=== PATIENT | female | born 1960 | race Caucasian/White ===

== ENCOUNTER → 2017-03-24 | Outpatient (CLI) | payer MEDICARE, OTHER ==
[~2017-03-24] MED LIST: BENADRYL IV; FLEXERIL PO; GEODAN PO; PHENERGAN PO; PROZAC PO; TOPAMAX PO; ULTRAM PO; ZITHROMAX PO
--- NOTE | ~2017-03-24 | MY11 ---
[facility] A Service of [facility] RADIOLOGY TEXT RESULTS PATIENT: JOANNE ROD LOCATION: [facility] : 60 UNIT #: [id number] AGE: [address]: Enrique Burk MD SEX: F ORDER DR: [id number] [facility] [address] [place], [place] [address] [id number] O MR#: [id number] Acc #: [id number] NAME: JOANNE ROD : 1960 SEX: F STUDY DATE/TIME: 03/24/2017 11:01 UNIT: [facility] ROOM: STUDY DESCRIPTION: MY Mammogram Screening Dig Buzz Attending Physician: Enrique Burk M.D. Ordering Physician: Enrique Burk M.D. Primary Care Physician: Enrique Burk M.D. MEDICAL IMAGING REPORT This report is preliminary unless electronic signature is present EXAM Bilateral digital screening mammogram with CAD HISTORY Routine screening. No current complaints. No family history of breast cancer. COMPARISON 01/24/2016, 01/09/2015, 06/22/2014. FINDINGS MLO and CC digital views of each breast were obtained. The study was done with digital technique and reviewed with an FDA-approved CAD device. The breasts are almost entirely fatty replaced except for an oval 2 cm nodule in the right upper outer quadrant. The right breast nodule has been present for many years and has minimally increased in size. 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 IMPRESSION No significant change. No evidence of malignancy. Patients over the age of 40 are entered into a reminder system with target due date for the next mammogram. A result letter will also be sent to the patient. BIRADS: 2 Benign finding Dictated by... Alberto Allen M.D. THIS IS AN ELECTRONICALLY VERIFIED REPORT [facility] A Service of [facility] RADIOLOGY TEXT RESULTS PATIENT: JOANNE ROD LOCATION: [facility] : 60 UNIT #: [id number] AGE: [address]: Enrique Burk MD SEX: F ORDER DR: Alberto Allen M.D. at 03/24/2017 3:55 PM EILEEN/nayeli TD: 03/24/2017 13:31 JOB #: [id number] MEDICAL IMAGING REPORT Page 1 of 1 COPY
== END | disposition home or self-care (01) ==
LOC: CWCC 03-20 14:30
DX: Z12.31 Encounter for screening mammogram for malignant neoplasm of breast (principal)
CPT/HCPCS: G0202

== ENCOUNTER → 2017-06-08 | Outpatient (CLI) | payer MEDICARE, OTHER ==
--- NOTE | ~2017-06-08 | BD1 ---
[facility] A Service of [facility] RADIOLOGY TEXT RESULTS PATIENT: JOANNE ROD LOCATION: [facility] : 60 UNIT #: [id number] AGE: [address]: Enrique Burk MD SEX: F ORDER DR: [id number] [facility] [address] [place], [place] [address] [id number] O MR#: [id number] Acc #: [id number] NAME: JOANNE ROD : 1960 SEX: F STUDY DATE/TIME: 06/08/2017 9:51 UNIT: [facility] ROOM: STUDY DESCRIPTION: BD Dexa Bone Dens 1+ Site Attending Physician: Enrique Burk M.D. Referring Physician: Enrique Burk M.D. Ordering Physician: Enrique Burk M.D. Primary Care Physician: Enrique Burk M.D. MEDICAL IMAGING REPORT This report is preliminary unless electronic signature is present EXAM DXA scan, 06/08/2017 HISTORY Status post menopause with no hormone replacement therapy. Osteopenia. Diabetes. Smoking history. FINDINGS Bone mineral density in the lumbar spine from L1-L4 is 0.998 g/cm2 which is 0.4 standard deviations below the mean when compared to the young adult reference population which is within the range of normal. This is 0.8 standard deviations above the mean when compared to the age-matched population. Bone mineral density in the left femoral neck was 0.715 g/cm2 which is 1.2 standard deviations below the mean when compared to the young adult reference population which is characteristic of osteopenia. This is 0.1 standard deviations below the mean when compared to the age-matched population. IMPRESSION Bone mineral density in the lumbar spine within the range of normal and within the left hip characteristic of osteopenia. Dictated by... Bry Bee M.D. THIS IS AN ELECTRONICALLY VERIFIED REPORT Bry Bee M.D. at 06/09/2017 7:32 AM ADAMARIS/garrett TD: 06/08/2017 14:03 [facility] A Service of [facility] RADIOLOGY TEXT RESULTS PATIENT: JOANNE ROD LOCATION: [facility] #: [id number] : 60 UNIT #: [id number] AGE: [address]: Enrique Burk MD SEX: F ORDER DR: DARREL #: [id number] MEDICAL IMAGING REPORT Page 1 of 1 COPY
== END | disposition home or self-care (01) ==
LOC: CWCC 09:38
DX: Z13.820 Encounter for screening for osteoporosis (principal); M85.88 Other specified disorders of bone density and structure, other site
CPT/HCPCS: 77080